=== PATIENT | male | born 1995 | race Asian ===

== ENCOUNTER 2016-11-08 19:13 | Emergency (ER) | payer OTHER ==
[~2016-11-08] VITALS: Ht 180.3 cm; Wt 79.1 kg
[2016-11-08 19:16] VITALS: Ht 180.3 cm; Wt 79.1 kg
[2016-11-08] MEDS ORDERED: ACETAMINOPHEN 500 MG TAB PO STA (19:46)
[2016-11-08 20:06] VITALS: TEMP 38.6
[2016-11-08] MEDS ORDERED: OSELTAMIVIR PHOSPHATE 75 MG CAP PO STA (21:05)
[2016-11-08] MEDS ORDERED: OSEL75CA12 PO (21:07)
[2016-11-08 21:35] VITALS: BP 124/64; PULSE 86; O2SAT 98
--- NOTE | 2016-11-08 23:37 | EMERGENCY ROOM VISIT NOTE ---
History First contact with patient: 19:36 Chief Complaint: FLU LIKE SX Stated Complaint: FEVER, RUNNY NOSE, HEADACHE History of Present Illness The patient is a 21 year old male who presents to the Emergency Room with complaints of fever, runny nose, headache and myalgias for the past 24 hours. The patient denies any known sick contacts. He denies any shortness of breath, chest pain, back pain, nausea or vomiting. He denies any urinary symptoms or diarrhea. The patient does not have a family doctor. He has not been evaluated at an urgent care center at this point, and rates his discomfort a 4 out of 10. He has not taken ibuprofen or Tylenol on a regular basis for his symptoms. Review of Systems 10 system review was performed and was negative except for pertinent positives and negatives as indicated in history of present illness Past Medical/Surgical History Medical Problems: (1) No significant past medical history Surgical Problems: (1) No history of previous surgery Family History No significant family history Social History Smoking Status: Never Smoker Alcohol Use: none Marital Status: single Housing Status: lives with family Occupation Status: unemployed Current/Historical Medications Scheduled Oseltamivir (Tamiflu), 75 MG PO BID Allergies Coded Allergies: No Known Allergies (Unverified , 11/08/16) Physical Exam Vital Signs Date Time Temp Pulse Resp B/P Pulse Ox O2 Delivery O2 Flow Rate FiO2 11/08/16 21:35 86 18 124/64 98 11/08/16 20:06 38.6 11/08/16 19:16 37.3 98 20 129/71 98 Room Air Physical Exam CONSTITUTIONAL: Healthy and well nourished. Alert and oriented X 3 with positive affect. Patient does not appear acutely or toxic. HEENT: Normocephalic, atraumatic. Pupils equal, round and reactive. Ears and nares are clear. Patient has mild rhinorrhea. No conjunctival injection or scleral icterus. OROPHARYNX: Mild posterior pharyngeal erythema without tonsillar hypertrophy or exudates. NECK: Full active range of motion without discomfort. No nuchal rigidity. LYMPHATICS: No cervical chain adenopathy. RESPIRATORY: Clear to auscultation bilaterally with no wheezing, crackles, rhonchi or stridor. CARDIOVASCULAR: Regular rate and rhythm with no murmurs, rubs or gallops. GASTROINTESTINAL: Bowel sounds present in all quadrants. Soft and nontender to palpation. MUSCULOSKELETAL: Full range of motion of all joints without discomfort. INTEGUMENTARY: No rash or other significant dermatologic conditions noted. HEMATOLOGIC: No ecchymosis or petechiae noted. NEUROLOGIC: No focal neurologic deficits noted. Medical Decision & Procedures ER Provider Diagnostic Interpretation: Influenza screen was positive for influenza type A. Laboratory Results Test 11/08/16 20:05 Influenza Type A Antigen POS for Influ A (NEG) Influenza Type B Antigen Neg for Influ B (NEG) Medications Administered Medications (Trade) Dose Ordered Sig/Jono Route Start Time Stop Time Status Last Admin Dose Admin Acetaminophen (Tylenol Tab) 1,000 mg NOW STAT PO 11/08/16 19:46 11/08/16 19:48 DC 11/08/16 19:57 1,000 MG Oseltamivir Phosphate (Tamiflu Cap) 75 mg NOW STAT PO 11/08/16 21:05 11/08/16 21:06 DC 11/08/16 21:27 75 MG ED Course Patient history and physical exam were performed. Nurse's notes were reviewed. The patient is currently afebrile and normotensive. O2 saturation is also normal. The patient was administered Tylenol 1 g for pain. Influenza screen was positive for influenza type A. This was relayed to the patient. The patient was administered Tamiflu 75 mg, and received a prescription for Tamiflu. He was encouraged to alternate ibuprofen and Tylenol as needed for pain and fever. The patient was advised that he should consider himself to be contagious until he has had no fever for 24 hours, without use of NSAIDs or Tylenol. He was encouraged to follow-up with his PCP as needed for further management. The patient was happy with plan of care, and voiced understanding of all discharge instructions. Medical Decision Impression Primary Impression: Influenza A Departure Information Prescriptions Oseltamivir (Tamiflu) 75 Mg Cap 75 MG PO BID for 5 Days, #10 CAP Prov: Behzad Encinas PA 11/08/16 Referrals No Doctor, Assigned (PCP) Patient Instructions A Signature Page, [facility]
== END 2016-11-08 21:36 | disposition home or self-care (01) ==
LOC: C.EDB 19:14 → C.EDC 21:36
DX: J11.1 Influenza due to unidentified influenza virus with other respiratory manifestations (principal)